=== PATIENT | male | born 1950 | race Caucasian/White ===

== ENCOUNTER 2017-12-02 10:56 | Emergency (ER) | payer MEDICARE ==
[~2017-12-02] VITALS: Ht 193 cm; Wt 111.0 kg
[~2017-12-02 10:56] MED LIST: CEPH-357 PO
[2017-12-02 12:20] VITALS: BP 173/92
== END 2017-12-02 12:00 | disposition home or self-care (01) ==
LOC: ER 10:56
DX: S00.01XA Abrasion of scalp, initial encounter (principal); E78.00 Pure hypercholesterolemia, unspecified; I10 Essential (primary) hypertension; Z60.2 Problems related to living alone; Z98.890 Other specified postprocedural states; W01.0XXA Fall on same level from slipping, tripping and stumbling without subsequent striking against object, initial encounter; Y93.89 Activity, other specified; Y92.89 Other specified places as the place of occurrence of the external cause; Y99.8 Other external cause status
CPT/HCPCS: 99283; A6255

== ENCOUNTER 2018-10-24 22:33 | Emergency (ER) | payer MEDICARE ==
[~2018-10-24] VITALS: Ht 193 cm; Wt 83.0 kg
[2018-10-24] MEDS ORDERED: prednisone 10mg tablet PO SCH (23:20)
[2018-10-24] MEDS ORDERED: valacyclovir 500mg tablet PO SCH (23:20)
[2018-10-24] MEDS ORDERED: PRED20TA PO (23:21)
[2018-10-24] MEDS ORDERED: VALA100027 PO (23:21)
[2018-10-24] MEDS ORDERED: acetaminophen 325mg tablet PO STA (23:26)
[2018-10-24 23:32] LABS: ALANINE AMINOTRANSFERASE 25 U/L (12-78); ALBUMIN 4.1 G/DL (3.4-5.0); ALBUMIN/GLOBULIN RATIO 1.1 (1.1-1.5); ALKALINE PHOSPHATASE 97 IU/L (46-116); ANION GAP 9 (8-16); ASPARTATE AMINO TRANSFERASE 19 U/L (10-37); BILIRUBIN,TOTAL 0.5 MG/DL (0.1-1.0); BLOOD UREA NITROGEN 21 MG/DL (7-18); BUN/CREATININE RATIO 21.4 (5.4-32.0); CALCIUM 9.3 MG/DL (8.5-10.1); CHLORIDE 103 MMOL/L (99-107); CREATININE 0.98 MG/DL (0.60-1.10); GLUCOSE 106 MG/DL (70-104); INR 1.1 INR; PARTIAL THROMBOPLASTIN TIME 30 SECONDS (22-32); POTASSIUM 3.6 MMOL/L (3.5-5.1); PROTHROMBIN TIME 10.7 SECONDS (9.0-12.0); SODIUM 140 MMOL/L (135-145); TOTAL CARBON DIOXIDE 27.9 MMOL/L (24-32); eGFR 76 ML/MIN
[2018-10-24 23:35] LABS: TROPONIN I < 0.04 NG/ML (0.0-0.05)
[2018-10-24] MEDS ORDERED: predniSONE 20 mg tablet PO SCH (23:37)
[2018-10-24 23:45] LABS: BASOPHILS % (AUTO) 0.2 % (0-1); EOSINOPHILS # (AUTO) 0.3 X10'3 (0-0.9); EOSINOPHILS % (AUTO) 3.9 % (0-6); HEMATOCRIT 44.4 % (42.0-52.0); HEMOGLOBIN 15.4 g/dl (14.0-17.9); LYMPHOCYTES # (AUTO) 1.7 X10'3 (1.1-4.8); LYMPHOCYTES % (AUTO) 22.8 % (21-51); MEAN CORPUSCULAR HEMOGLOBIN 31.4 PG (27.0-31.0); MEAN CORPUSCULAR HGB CONC 34.7 % (33.0-36.5); MEAN CORPUSCULAR VOLUME 90.4 FL (78-98); MEAN PLATELET VOLUME 9.1 FL (7.4-10.4); MONOCYTES # (AUTO) 0.9 X10'3 (0-0.9); MONOCYTES % (AUTO) 12.1 % (2-12); NEUTROPHILS # (AUTO) 4.6 X10'3 (1.8-7.7); PLATELET COUNT 185 X10'3 (140-440); RED BLOOD COUNT 4.91 X10'6 (4.70-6.10); RED CELL DISTRIBUTION WIDTH 12.5 % (11.5-14.5); WHITE BLOOD COUNT 7.6 X10'3 (4.5-11.0)
[2018-10-25 00:13] VITALS: BP 171/80
== END 2018-10-25 00:15 | disposition home or self-care (01) ==
LOC: ER 22:34
DX: G51.0 Bell's palsy (principal); E78.00 Pure hypercholesterolemia, unspecified; I10 Essential (primary) hypertension; Z98.890 Other specified postprocedural states; Z60.2 Problems related to living alone; Z88.0 Allergy status to penicillin; Z79.2 Long term (current) use of antibiotics; Z79.899 Other long term (current) drug therapy
CPT/HCPCS: 36415; 70450; 71045; 80053; 82948; 84484; 85025; 85610; 85730; 93005; 99284; J7512

== ENCOUNTER 2019-02-01 12:02 | Emergency (ER) | payer MEDICARE ==
[~2019-02-01] VITALS: Ht 188 cm; Wt 109.1 kg
[~2019-02-01 12:02] MED LIST changes: +VALA100027 PO
[2019-02-01 12:57] VITALS: BP 156/96
== END 2019-02-01 12:59 | disposition home or self-care (01) ==
LOC: ER 12:03
DX: S06.0X0A Concussion without loss of consciousness, initial encounter (principal); S00.83XA Contusion of other part of head, initial encounter; I10 Essential (primary) hypertension; E78.00 Pure hypercholesterolemia, unspecified; Z88.0 Allergy status to penicillin; W18.30XA Fall on same level, unspecified, initial encounter; Y93.89 Activity, other specified; Y92.89 Other specified places as the place of occurrence of the external cause; Y99.8 Other external cause status
CPT/HCPCS: 70450; 99284

== ENCOUNTER 2020-12-28 07:51 | Day surgery (SDC) | payer MEDICARE, BC ==
[2020-12-21 16:40] LABS: BASOPHILS % (AUTO) 0.7 % (0-1); EOSINOPHILS # (AUTO) 0.2 X10'3 (0-0.9); EOSINOPHILS % (AUTO) 2.7 % (0-6); LYMPHOCYTES # (AUTO) 2.2 X10'3 (1.1-4.8); LYMPHOCYTES % (AUTO) 35.5 % (21-51); MEAN CORPUSCULAR HEMOGLOBIN 30.9 PG (27.0-31.0); MEAN CORPUSCULAR HGB CONC 34.1 g/dL (33.0-36.5); MEAN CORPUSCULAR VOLUME 90.8 FL (78-98); MEAN PLATELET VOLUME 8.9 FL (7.4-10.4); MONOCYTES # (AUTO) 0.8 X10'3 (0-0.9); MONOCYTES % (AUTO) 12.4 % (2-12); NEUTROPHILS % (AUTO) 48.7 % (42-75); PRE OP HEMATOCRIT 46.5 % (42.0-52.0); PRE OP HEMOGLOBIN 15.8 g/dL (14.0-17.9); PRE OP PLATELET COUNT 186 X10'3 (140-440); RED BLOOD COUNT 5.12 X10'6 (4.70-6.10); RED CELL DISTRIBUTION WIDTH 12.9 % (11.5-14.5)
[2020-12-21 16:42] LABS: ALBUMIN 4.1 G/DL (3.4-5.0); ALBUMIN/GLOBULIN RATIO 1.1 (1.1-1.5); ALKALINE PHOSPHATASE 98 IU/L (46-116); BLOOD UREA NITROGEN 21 MG/DL (7-18); CALCIUM 9.5 MG/DL (8.5-10.1); CHLORIDE 105 MMOL/L (99-107); PRE OP ALT 40 U/L (30-65); PRE OP ANION GAP 10 (8-16); PRE OP AST 29 U/L (10-37); PRE OP BILIRUB, TOTAL 0.4 MG/DL (0.0-1.0); PRE OP GLUCOSE 99 MG/DL (70-104); PRE OP POTASSIUM 4.3 MMOL/L (3.4-5.1); PRE OP SODIUM 143 MMOL/L (135-145); TOTAL CARBON DIOXIDE 28.3 MMOL/L (24-32); TOTAL PROTEIN 7.8 G/DL (6.4-8.2); eGFR 73 ML/MIN
[2020-12-21 16:43] LABS: COLOR,URINE YELLOW (Yellow); GLUCOSE, URINE NEGATIVE (Neg); KETONES,URINE NEGATIVE (Neg); LEUKOCYTE ESTERASE ,URINE NEGATIVE (Neg); NITRITES, URINE NEGATIVE (Neg); OCCULT BLOOD,URINE NEGATIVE (Neg); PROTEIN,URINE NEGATIVE (Neg); UROBILINOGEN,URINE 0.2 E.U/dL (0.2-1.0)
[2020-12-21 16:54] LABS: CLARITY,URINE CLEAR (Clear); UA COLLECTION TYPE CLN CATCH MIDSTREAM
[~2020-12-28] VITALS: Ht 193 cm; Wt 111.2 kg
[2020-12-28] VITALS (20 sets, daily range): BP systolic 140–178; BP diastolic 78–91
[~2020-12-28 07:51] MED LIST changes: +BUPIVAcaine/PF 2.5 mg/ml (0.25%) 30ml vial ONE; -CEPH-357 PO; +NO HOME MEDS; -VALA100027 PO; +ceFAZolin 2gm in dextrose, iso 50 ML IV ONE; +famotidine 20mg tablet PO ONE; +ringers solution, lacted 1,000 ML IV SCH
[2020-12-28] MEDS ORDERED: ketorolac trometh. 30mg/ml inj. ONE (12:12)
[2020-12-28] MEDS ORDERED: sevoflurane 250ml liquid IH ONE (12:12)
[2020-12-28] MEDS ORDERED: fentaNYL /PF 50mcg/ml 5ml ampule ONE (12:20)
[2020-12-28] MEDS ORDERED: midazolam 2 mg/2 ml injection ONE (12:20)
[2020-12-28] MEDS ORDERED: LIDOcaine 2% 5ml jelly ONE (12:21)
[2020-12-28] MEDS ORDERED: morphine 2 MG/ML inj. syringe IV PRN (12:55)
[2020-12-28] MEDS ORDERED: morphine 4 MG/ML inj SYRINge IV PRN (12:55)
[2020-12-28] MEDS ORDERED: dexamethasone sod phosphate 4mg/ml inj. ONE (12:55)
[2020-12-28] MEDS ORDERED: ondansetron/PF 4mg/2ml inj ONE (12:55)
[2020-12-28] MEDS ORDERED: labetalol 20mg/4ml (5mg/ml) syringe IV PRN (12:55)
[2020-12-28] MEDS ORDERED: proCHLORperazine 10 MG/2 ml inj IV PRN (12:55)
[2020-12-28] MEDS ORDERED: LIDOcaine 2% (20mg/ml) 5ml vial ONE (12:55)
[2020-12-28] MEDS ORDERED: ondansetron/PF 4mg/2ml inj IV PRN (12:55)
[2020-12-28] MEDS ORDERED: meperidine/PF 25mg/ml syringe IV PRN ×3 (12:55)
[2020-12-28] MEDS ORDERED: rocuronium 10mg/ml inj IV ONE ×2 (12:55→14:49)
[2020-12-28] MEDS ORDERED: acetaminophen 1,000mg/100ml IV 100 ML IV PRN (12:55)
[2020-12-28] MEDS ORDERED: ringers solution, lacted 1,000 ML IV SCH (12:55)
[2020-12-28] MEDS ORDERED: propofol inj 20 ML IV ONE (12:55)
[2020-12-28] MEDS ORDERED: morphine 10mg/ml inj. ONE (14:53)
[2020-12-28] MEDS ORDERED: sugammadex 200mg/2ml injection IV ONE (14:57)
[2020-12-28] MEDS: hydrALAZINE 20mg/ml inj. IV PRN ×2 (17:04→17:21)
--- NOTE | 2020-12-28 17:23 | NUR ---
PT COUGHING AND SPUTUM IS BLOODY, DR SHELTON IN TO ASSESS, RECOMMENDED ICE CHIPS AND THROAT LOZENGES, WILL CONTINUE TO MONITOR. Addendum: 12/28/20 at 1728 by Gissel Land RN Amended: Links added.
[2020-12-28] MEDS ORDERED: benzocaine/menthol oral lozeng 1 EACH BOX MM PRN (17:30)
--- NOTE | 2020-12-28 18:44 | NUR ---
PT UP AND ABLE TO AMBULATE SAFELY, VOIDED, BLOODY SPUTUM W/COUGH HAS SLOWED DOWN, PT COMFORTABLE, D/C APPROVED BY DR SHELTON, D/C INSTRUCTIONS GIVEN AND GONE OVER W/PT WHO VERBALIZED UNDERSTANDING. PT D/CD TO HOME VIA W/C TO PRIVATE VEHICLE W/O INCIDENT. Addendum: 12/28/20 at 1925 by Gissel Land RN Amended: Links added.
== END 2020-12-28 18:44 | disposition home or self-care (01) ==
LOC: PAS 07:51
PROVIDERS: ATTEND Surgery
DX: K40.90 Unilateral inguinal hernia, without obstruction or gangrene, not specified as recurrent (principal); D17.6 Benign lipomatous neoplasm of spermatic cord; G51.0 Bell's palsy; Z20.822 Contact with and (suspected) exposure to COVID-19; Z85.72 Personal history of non-Hodgkin lymphomas; Z95.0 Presence of cardiac pacemaker; Z98.890 Other specified postprocedural states; Z88.0 Allergy status to penicillin; Z88.8 Allergy status to other drugs, medicaments and biological substances; Z79.899 Other long term (current) drug therapy; Z72.89 Other problems related to lifestyle; Z80.7 Family history of other malignant neoplasms of lymphoid, hematopoietic and related tissues
CPT/HCPCS: 36415; 49650; 80053; 81003; 82948; 85025; 87635; C1758; C1781; C9399; J0360; J1100; J1885; J2001; J2175; J2250; J2270; J2405; J2704; J3010; J3490; J7120; A4215; A4618

== ENCOUNTER → 2024-05-26 | Outpatient (CLI) | payer MEDICARE, OTHER ==
[~2024-05-26] MED LIST changes: -BUPIVAcaine/PF 2.5 mg/ml (0.25%) 30ml vial ONE; -ceFAZolin 2gm in dextrose, iso 50 ML IV ONE; -famotidine 20mg tablet PO ONE; -ringers solution, lacted 1,000 ML IV SCH
== END | disposition home or self-care (01) ==
LOC: MRI 14:33
PROVIDERS: ATTEND Podiatrist Foot & Ankle Surgery
DX: M67.873 Other specified disorders of tendon, right ankle and foot (principal); M76.61 Achilles tendinitis, right leg; M79.89 Other specified soft tissue disorders
CPT/HCPCS: 73721

== ENCOUNTER 2024-11-17 16:50 | Emergency (ER) | payer MEDICARE, OTHER ==
[~2024-11-17] VITALS: Ht 193 cm; Wt 108.6 kg
[2024-11-17] MEDS: TETanus/Pertussis (Acell)/Diphther VAC/PF (Tdap-Adult) 0.5ml syringe IMVAC ONE (19:36)
[2024-11-17] MEDS ORDERED: CEPH-585 PO (19:39)
[2024-11-17] MEDS: LIDOcaine 1% W/epiNEPHrine 1:100,000 20ml vial IJ ONE (19:43)
[2024-11-17 19:53] VITALS: BP 138/82; PULSE 69; RESP 18; TEMP 98.7; O2SAT 98
== END 2024-11-17 19:55 | disposition home or self-care (01) ==
LOC: ER 16:50
DX: S61.511A Laceration without foreign body of right wrist, initial encounter (principal); E78.00 Pure hypercholesterolemia, unspecified; I10 Essential (primary) hypertension; Z88.1 Allergy status to other antibiotic agents; Z90.89 Acquired absence of other organs; Z88.0 Allergy status to penicillin; Z95.0 Presence of cardiac pacemaker; W26.0XXA Contact with knife, initial encounter; Y93.89 Activity, other specified; Y92.89 Other specified places as the place of occurrence of the external cause; Y99.8 Other external cause status
CPT/HCPCS: 12001; 90715; 99283; A6402; G0008; Z7610; 90471; A6449